=== PATIENT | female | born 1935 | race African-American/Black ===

== ENCOUNTER → 2020-02-12 15:05 | Outpatient (CLI) | payer MEDICARE, BC, SELFPAY ==
--- NOTE | 2020-02-12 15:10 | CT_ITS ---
STUDY: CT RIGHT KNEE WITHOUT CONTRAST REASON FOR EXAM: Female, 84 years old. RT KNEE PAT - Images are for the roboted assisted surgery. RADIATION DOSAGE (If Supplied By Facility): CTDIvol = ( 30.70 ) mGy, DLP = ( 1825.46 ) mGycm TECHNIQUE: Transaxial CT imaging of the knee was performed. Coronal and sagittal images were reformatted. Individualized dose optimization techniques were used for this CT. COMPARISON: None. FINDINGS: Right hip and ankle appear in normal alignment. Cortical margin is intact. No osteolytic or osteoblastic disease. Soft tissues unremarkable. Ankle is in anatomic alignment. Cortical margins are intact. Soft tissues unremarkable. Moderate subchondral sclerosis and narrowing of the medial and lateral tibial femoral joint space. Slight lateral subluxation of the tibia. Mild marginal osteophytosis. Spurring of the superior pole of the patella. Normal proximal tibiofibular articulation. There is no joint effusion. The quadriceps tendon is grossly normal. The patellar tendon is grossly normal. Normal Hoffa''s fat pad. The soft tissues are unremarkable. CT/Extremity Lower without Contra IMPRESSION: Moderately severe osteoarthrosis of the knee Electronically Signed: Harry Lazo MD at 22:36 EDT , Service support ,
== END ==
PROVIDERS: PCP Nurse Practitioner Family; Referring Provider Orthopaedic Surgery; Visit Provider Orthopaedic Surgery
DX: M17.11 Unilateral primary osteoarthritis, right knee (principal); M21.161 Varus deformity, not elsewhere classified, right knee
CPT/HCPCS: 73700

== ENCOUNTER 2020-02-25 11:51 | Observation (INO) | payer MEDICARE, BC, SELFPAY ==
[2013-12-10 11:20] VITALS: BMI 24.8
--- NOTE | 2020-02-21 09:14 | EKG12_ITS ---
Test Reason : PRE-OP Blood Pressure : / mmHG Vent. Rate : 058 BPM Atrial Rate : 058 BPM P-R Int : 170 ms QRS Dur : 132 ms QT Int : 466 ms P-R-T Axes : 065 -14 051 degrees QTc Int : 457 ms Sinus bradycardia Right bundle branch block Abnormal ECG Confirmed by ZIGGY BELTRE, LEONID ([id number]), food editor MARIANO DENNIS ([id number]) on 02/25/2020 11:33:59 AM Referred By: Darrius Solorzano Confirmed By:DURGA TRINH MD
[2020-02-21 09:54] LABS: Absolute Lymphocyte Count 1.63 X10^3/uL (0.83-4.51); Absolute Neutrophil Count 2.4 X10^3/uL (2.0-7.7); Basophil# 0.03 X10^3/uL; Basophil% 0.6 % (0-1); Eosinophil# 0.08 X10^3/uL; Eosinophils% 1.6 % (0-5); Hematocrit 37.9 % (37-47); Hemoglobin 12.2 g/dL (12.0-15.0); Lymphocyte # 1.63 X10^3/ul (4.0); Lymphocyte % 32.4 % (19-41); Mean Corp Hgb Conc 32.2 g/dL (32-36); Mean Corpuscular Hgb 28.1 pg (27.0-32.0); Mean Corpuscular Volume 87.3 fL (81-99); Mean Platelet Vol. 9.8 fl (6.2-12.0); Monocyte# 0.93 X10^3/uL; Monocyte% 18.5 % (0-10); NRBC Flagged by Analyzer 0 % (0-5); Neutrophil # 2.35 X10^3/uL (2.7-7.7); Neutrophil % 46.7 % (47-70); Platelet Count 296 K/mm3 (150-450); RBC Distribution Width CV 14.2 % (11.6-14.6); RBC Distribution Width SD 45.4 fl (35.1-43.9); Red Blood Count 4.34 M/mm3 (4.2-5.4)
[2020-02-21 10:20] LABS: Anion Gap 7 (5-15); BUN 13 mg/dL (7-18); Calcium,Total 9.7 mg/dL (8.5-10.1); Chloride 103 mmol/L (98-107); Creatinine, Serum 0.76 mg/dL (0.55-1.02); EST Glomerular Filtration Rate 77 mL/min (>60); Est Glom Filt Rate - Afr Amer 93 mL/min (>60); Glucose 85 mg/dL (74-106); Potassium 3.5 mmol/L (3.5-5.1); Sodium Level 137 mmol/L (136-145)
[2020-02-25] VITALS (12 sets, daily range): BP systolic 119–149; BP diastolic 59–74; PULSE 54–69; RESP 14–18; TEMP 36.1–36.7; O2SAT 94–100; BMI 26.2; BMI 26.3
[2020-02-25] MEDS: Acetaminophen 500 MG Tablet 1000 MG PO ×2 (10:13→21:26)
[2020-02-25] MEDS: Gabapentin 600 MG Tablet PO (10:13)
[2020-02-25 10:41] LABS: Bedside Glucose 105 mg/dL (70-110)
[2020-02-25] MEDS: Lactated Ringers 1,000 ML 100 ML IV (10:50)
[2020-02-25] MEDS: Cefazolin 2 GM in 0.9% Normal Saline 100 ML IV (11:33)
--- NOTE | 2020-02-25 11:35 | KNEE_PTH ---
PATIENT: KIERAN STRICKLAND LOC: [facility] U#:[id number] AGE/SX: 84/F ROOM: MS314 RE02/25/[address]: Dr. Darrius Solorzano DO : 1935 BED: 1 DIS: 02/26/2020 SPEC #: [id number] RECD: 02/26/20 07:25 STATUS: MARA ROXANNE #: [id number] BRITNI: 02/25/20 11:[address]: Darrius Solorzano DEPT: SURGICAL PATHOLOGY RECD BY: Klaus Saleh ENTERED: 02/26/20 09:37 SP TYPE: TOTAL KNEE OTHR DR: Brandi Edwards NP-Lauren Tissues: Knee, NOS Procedures: Decalcification bone/plaque Surgery Specimen Level IV HEADER OPERATION: ERAS, total knee replacement robotic arm assist PRE-OP DIAGNOSIS: Unilateral primary osteoarthritis right knee TISSUE SUBMITTED: Right knee bone and soft tissue MICROSCOPIC DIAGNOSIS Bone and soft tissue, right knee, total knee replacement: Pieces of bone with degenerative osteoarthritic changes. Fibroadipose tissue, fibroconnective tissue and reactive synovial tissue. SJ:evonne 02/29/20 MICROSCOPIC DESCRIPTION Slides are reviewed. GROSS DESCRIPTION Received is one container designated bone and soft tissue right knee. The specimen consists of multiple fragments of li-yellow bone measuring in aggregate 15 x 8 x 2 cm. Also in the specimen container are multiple fragments of yellow-white soft tissue measuring in aggregate 9 x 7 x 2 cm. A number of bony fragments contain articular surfaces consistent with tibial plateau and femoral condyle and displaying prominent osteophyte formation, eburnation, and bone erosion. Boot Maker sections are submitted in two cassettes as follows: 1 - soft tissue, 2 - bone after decalcification. / AM:evonne 02/26/20 TC:5 [facility]: [id number]
--- NOTE | 2020-02-25 13:36 | PCM.OPRPT ---
Report of Operation Date of Procedure: 02/25/20 Pre-Operative Diagnosis: OA left knee Post-Operative Diagnosis: same Surgery/Procedure Performed:: left TKR finish mender: Sneha Groves Type of Anesthesia:: General Anesthesiologist: Rey Dexter - Admcelsa VTE Documentation VTE Present on Admission: No VTE Mechan Device Prophylaxis: SCD's, Thigh High HANH Hose VTE Pharm Prophylaxis ordered?: Yes
--- NOTE | 2020-02-25 13:38 | OP.PCM_ITS ---
Report of Operation Date of Procedure: 02/25/20 Pre-Operative Diagnosis: OA right knee Post-Operative Diagnosis: same Surgery/Procedure Performed:: right TKR regulatory analyst: Sneha Groves Type of Anesthesia:: Spinal Anesthesiologist: Jose Kirkland - Admit VTE Documentation VTE Present on Admission: No VTE Mechan Device Prophylaxis: SCD's, Thigh High HANH Hose VTE Pharm Prophylaxis ordered?: Yes
[2020-02-25] MEDS: Lactated Ringers 1,000 ML 125 ML IV ×2 (13:55→18:53)
--- NOTE | 2020-02-25 14:40 | RAD_ITS ---
STUDY: X-RAY - RIGHT KNEE REASON FOR EXAM: Postop right knee arthroplasty. TECHNIQUE: 2 view(s) of the knee. COMPARISON: CT images 02/12/2020. FINDINGS: There is a right total knee arthroplasty without evidence of complication. There is postoperative gas in the soft tissues and overlying skin teja. There is vascular calcification. RAD/Knee 1 or 2 Views IMPRESSION: Uncomplicated right total knee arthroplasty. Electronically Signed: Bernard Rider MD at 14:59 EDT Tel , Service support ,
[2020-02-25 14:51] LABS: Hematocrit 31.4 % (37-47); Mean Corp Hgb Conc 31.8 g/dL (32-36); Mean Corpuscular Hgb 28.7 pg (27.0-32.0); Mean Corpuscular Volume 90.2 fL (81-99); Platelet Count 245 K/mm3 (150-450); RBC Distribution Width CV 14.5 % (11.6-14.6); RBC Distribution Width SD 47.3 fl (35.1-43.9); Red Blood Count 3.48 M/mm3 (4.2-5.4); White Blood Count 4.2 K/mm3 (4.4-11.0)
[2020-02-25 15:15] LABS: Anion Gap 10 (5-15); BUN 6 mg/dL (7-18); Calcium,Total 8.2 mg/dL (8.5-10.1); Chloride 108 mmol/L (98-107); Creatinine, Serum 0.46 mg/dL (0.55-1.02); EST Glomerular Filtration Rate 137 mL/min (>60); Est Glom Filt Rate - Afr Amer 166 mL/min (>60); Estimated Creatinine Clearance 32.66 ml/min; Glucose 90 mg/dL (74-106); Potassium 3.6 mmol/L (3.5-5.1); Sodium Level 140 mmol/L (136-145)
[2020-02-25] MEDS: oxyCODONE 5 MG Tablet 2.5 MG PO ×2 (16:37→21:25)
[2020-02-25] MEDS: Furosemide 20 MG Tablet PO (17:27)
[2020-02-25] MEDS: Cefazolin 1 GM/50 ML BAG IV (18:53)
[2020-02-25] MEDS: Senna/Docusate Sodium 1 Tablet 2 TABLET PO (21:26)
[2020-02-25] MEDS: Metoprolol(XL)Succ 100 MG Tablet PO (21:26)
[2020-02-25] MEDS: Aspirin 81 MG TAB.CHEW PO (21:26)
[2020-02-26] MEDS: Cefazolin 1 GM/50 ML BAG IV (03:39)
[2020-02-26 03:40] VITALS: BP 145/68; PULSE 70; RESP 18; TEMP 37.1; O2SAT 94
[2020-02-26] MEDS: Acetaminophen 500 MG Tablet 1000 MG PO ×2 (05:40→14:41)
[2020-02-26 06:05] LABS: Hematocrit 36.8 % (37-47); Hemoglobin 11.7 g/dL (12.0-15.0); Mean Corp Hgb Conc 31.8 g/dL (32-36); Mean Corpuscular Hgb 28.7 pg (27.0-32.0); Mean Corpuscular Volume 90.2 fL (81-99); Mean Platelet Vol. 9.4 fl (6.2-12.0); Platelet Count 278 K/mm3 (150-450); RBC Distribution Width CV 14.4 % (11.6-14.6); RBC Distribution Width SD 47.2 fl (35.1-43.9); Red Blood Count 4.08 M/mm3 (4.2-5.4)
[2020-02-26 06:33] LABS: Anion Gap 7 (5-15); BUN 8 mg/dL (7-18); BUN/Creat Ratio 9.1 RATIO (10-20); Chloride 105 mmol/L (98-107); Creatinine, Serum 0.88 mg/dL (0.55-1.02); EST Glomerular Filtration Rate 66 mL/min (>60); Est Glom Filt Rate - Afr Amer 79 mL/min (>60); Estimated Creatinine Clearance 37.11 ml/min; Glucose 87 mg/dL (74-106); Potassium 3.7 mmol/L (3.5-5.1); Sodium Level 140 mmol/L (136-145)
--- NOTE | 2020-02-26 07:31 | PN.ORTHO_ITS ---
Subjective: The patient was sitting in their upon examination. Patient denies chest pain, shortness of breath, dizziness, lightheadedness, nausea, vomiting or calf pain. Pain is controlled on medications. No adverse events overnight. The patient denies any questions or concerns. She states she is ready to go home. Objective: Vital signs stable. Patient is afebrile. Patient is able to plantar flex and dorsiflex actively. Sensation is intact to light touch to saphenous, sural, superficial and deep peroneal and tibial nerve distributions. Dressing is clean, dry and intact. Negative Homans bilaterally. Negative signs and symptoms of DVT. - Physical Exam Vitals/I&O's: Vital Signs Temp Pulse Resp BP Pulse Ox 98.7 F 70 18 145/68 H 94 02/26/20 03:40 02/26/20 03:40 02/26/20 03:40 02/26/20 03:40 02/26/20 03:40 Oxygen Flow Rate (L/min) 6 Oxygen Delivery Method Room Air Weight: 49.4 kg Body Mass Index (BMI) 26.3 Intake and Output for Last 24 Hours 02/24/20 02/25/20 02/26/20 23:59 23:59 23:59 Intake Total 2357.08 / 2357.08 1043.75 / 1043.75 Output Total 900 / 900 Balance 2357.08 / 2357.08 143.75 / 143.75 General: Alert, Oriented x3, Cooperative HEENT: Atraumatic Extremities: Capillary Refill Less than 3 Seconds, No Calf Tenderness, Edema - Postoperative swelling appreciated., Peripheral Pulses Normal Skin: No rashes, No breakdown Neurological: Cranial nerves II-XII grossly intact Psych/Mental Status: Normal Affect, Appropriate Microbiology Past 72 Hours 02/24/20 09:50 Mucosa - Nasopharyngeal Coronavirus COVID-19 PCR - Final Laboratory Results 02/25/20 10:12: POC Glucose 105 02/25/20 14:45: WBC 4.2 L, RBC 3.48 L, Hgb 10.0 L, Hct 31.4 L, MCV 90.2, MCH 28.7, MCHC 31.8 L, RDW Std Deviation 47.3 H, RDW Coeff of Anat 14.5, Plt Count 245, MPV 10.0 02/25/20 14:45: Sodium 140, Potassium 3.6, Chloride 108 H, Carbon Dioxide 22.0, Anion Gap 10, BUN 6 L, Creatinine 0.46 L, Estim Creat Clear Calc 32.66, Est GFR (MDRD) Af Amer 166, Est GFR (MDRD) Non-Af 137, BUN/Creatinine Ratio 13.0, Glucose 90, Calcium 8.2 L 02/26/20 05:50: WBC 7.0, RBC 4.08 L, Hgb 11.7 L, Hct 36.8 L, MCV 90.2, MCH 28.7, MCHC 31.8 L, RDW Std Deviation 47.2 H, RDW Coeff of Anat 14.4, Plt Count 278, MPV 9.4 02/26/20 05:50: Sodium 140, Potassium 3.7, Chloride 105, Carbon Dioxide 28.0, Anion Gap 7, BUN 8, Creatinine 0.88, Estim Creat Clear Calc 37.11, Est GFR (MDRD) Af Amer 79, Est GFR (MDRD) Non-Af 66, BUN/Creatinine Ratio 9.1 L, Glucose 87, Calcium 9.0 Current Medications Acetaminophen (Tylenol) 1,000 mg PO Q8 [facility] Last Admin: 02/26/20 05:40 Dose: 1,000 mg Documented by: Amlodipine Besylate (Norvasc) 10 mg PO DAILY [facility] Aspirin (Aspirin, Baby) 81 mg PO BIDCM [facility] Last Admin: 02/25/20 21:26 Dose: 81 mg Documented by: Furosemide (Lasix) 20 mg PO BIDLX [facility] Last Admin: 02/25/20 17:27 Dose: 20 mg Documented by: Sodium Chloride () 250 mls @ 15 mls/hr IV .[id number] PRN PRN Reason: Saline Flush Sodium Chloride () 250 mls @ 15 mls/hr IV .[id number] PRN PRN Reason: Additional IVPB Infusion Metoprolol Succinate (Toprol Xl (Beta Homa)) 100 mg PO QHS [facility] Last Admin: 02/25/20 21:26 Dose: 100 mg Documented by: Ondansetron HCl (Zofran) 4 mg IV Q8H PRN PRN PRN Reason: NAUSEA Oxycodone HCl (Oxyir) 2.5 mg PO Q4H PRN PRN PRN Reason: Pain Score 4-10/10 Last Admin: 02/25/20 21:25 Dose: 2.5 mg Documented by: Senna/Docusate Sodium (Senokot-S, Hui-Colace) 2 tablet PO BID [facility] Last Admin: 02/25/20 21:26 Dose: 2 tablet Documented by: Sodium Chloride () 10 - 40 ml IV UD PRN PRN Reason: SALINE FLUSH Medical Necessity - Tobacco Use Smoking Status: Current some day smoker Tobacco Use: Cigarettes Assessment/Plan 1. Status post right total knee arthroplasty post operative day #1. 2. Continue pain medications: Tylenol and OxyIR 3. DVT prophylaxis: Aspirin and thigh-high HANH hose 4. PT/OT: Weightbearing as tolerated 5. H & H: 11.7/36.7, asymptomatic 6. WBCs: 7.0, afebrile 7. Encouraged incentive spirometry. 8. Continue postoperative medical management per medicine. 9: Postoperative drainage: Dressing is clean, dry and intact. No drainage noted on the dressing. Patient may shower over the dressing 24 hours postoperatively. She may remove the dressing 5 days after surgery. 9. Disposition: The plan will be for discharge home today after physical therapy. Prescriptions will be sent to the [facility] retail pharmacy. The patient is scheduled for a postop appointment with Rock Nelson on March 11, 2020 at [facility] at 9:45 AM. She has scheduled for formal physical therapy at [facility] on February 29, 2020 at 11 AM.
--- NOTE | 2020-02-26 07:43 | PCM.DC.TKR ---
Discharge Diet: No Restrictions Discharge Activity: May Not Drive May shower in (days): 1 Ice area for (Minutes): 20 - every hour while awake. Weight Bearing Status: Weight bearing as tolerated Elevate: Operative Extremity Additional Activity Instructions:: Wear elastic stockings for 2 weeks after your surgery. Call your doctor if your incision/area has: Continuous Slow Oozing, Sudden Increased Bleeding, Increased Pain/ Swelling, Increased Redness, Foul Smelling Discharge Call your doctor if you observe: Fever of 101 or Higher, Coldness, Increased Pain, Numbness or Tingling, Change in Color, Calf discomfort, Uncontrolled pain Remove Dressing in (days):: 5 Cleanse incision/area with: Soap & Water Additional Dressing/Incision Instructions:: May shower over dressing as long as it is clean, dry and intact to the skin 24 hours postoperatively. Dressing may be removed 5 days postoperatively. Allergies/Adverse Reactions: Allergies No Known Allergies Allergy (Verified 12/04/13 14:17) Medications to take at Discharge Furosemide [Lasix] 20 mg PO BID 12/04/13 Metoprolol(XL)Succ [Toprol Xl (Beta Homa)] 100 mg PO QHS 12/04/13 Amlodipine [Norvasc] 10 mg PO DAILY 02/20/20 Acetaminophen [Tylenol] 1,000 mg PO Q8 30 Days #100 02/26/20 Aspirin [Aspirin, Baby] 81 mg PO BIDCM 30 Days #60 tab.chew 02/26/20 Oxycodone [Oxyir] 2.5 mg PO Q4H PRN PRN 7 Days #21 tablet 02/26/20 Senna/Docusate Sodium [Senokot-S] 2 tab PO BID #10 tab 02/26/20 The following prescriptions were given: Aspirin [Aspirin, Baby] 81 mg PO BIDCM 30 Days #60 tab.chew Transmission Status: Pending to [facility] Oxycodone [Oxyir] 2.5 mg PO Q4H PRN PRN 7 Days #21 tablet PRN Reason: Pain Score 4-10/10 Transmission Status: Sent to [facility] Senna/Docusate Sodium [Senokot-S] 2 tab PO BID #10 tab Transmission Status: Pending to [facility] Acetaminophen [Tylenol] 1,000 mg PO Q8 30 Days #100 Primary Care Physician: Edwards,Brandi, [facility] [Primary Care Provider] - Test Results: Test results from this visit will be discussed in further detail at your follow-up appointment, if applicable. Please Follow Up With: Blane Nelson PA-C When: March 11, 2020 at 09:45 am Please Follow Up With: JANETH Physical Therapy When: February 29, 2020 at 11:00 am
[2020-02-26 07:53] VITALS: BP 110/47; PULSE 51; RESP 16; TEMP 37.1; O2SAT 93
[2020-02-26] MEDS: Aspirin 81 MG TAB.CHEW PO (07:55)
[2020-02-26 08:00] VITALS: PULSE 51
[2020-02-26] MEDS: oxyCODONE 5 MG Tablet 2.5 MG PO ×2 (08:10→14:40)
[2020-02-26] MEDS: Furosemide 20 MG Tablet PO (10:44)
[2020-02-26] MEDS: Senna/Docusate Sodium 1 Tablet 2 TABLET PO (10:44)
[2020-02-26] MEDS: amLODIPine 10 MG Tablet PO (10:44)
--- NOTE | 2020-02-26 11:00 | CASEMGMT ---
RN JEFFREY Face to Face with patient for initial transition planning/care coordination assessment. RN CM introduced self and role at [facility]. Patient sitting in chair, alert and oriented. Patient willing to participate in assessment and is able to answer all questions appropriately. Care providers, pharmacy, and demographics verified. Patient wishes to discharge home and is setup for outpatient therapy at [facility]. Patient states she has no further needs or concerns at this time. CM to follow for discharge planning needs that may arise. PCP: Jerry Specialists: anna Solorzano Pharmacy: [facility] Insurance: Josef BORJAS Prescription Benefit: yes Living Will/HPOA: none LNOK: daughter Living Arrangements: Patient lives with grandson in first floor apt, no steps to enter. Patient states she was independent at home prior to surgery Transportation: daughter DME/HHC: Patient states that she has walker and grab bars at home. Patient is scheduled for outpatient therapy at [facility] on Tuesday. Disposition Plan: Patient to discharge home with outpatient therapy, family support, and follow-up plans in place. Yesica STOVER, RN, CM
--- NOTE | 2020-02-26 12:37 | CHAPLAIN ---
Type of Pastoral Visit _x__ Initial Visit ___ Follow-up Visit ___ On-call Visit ___ General Patient Visit ___ Spiritual Assessment ___ Family Conference ___ Bereavement ___ Rapid Response ___ Code Blue ___ Other (describe below) Pastoral Care Referral From _x__ Patient ___ Family ___ Nurse ___ Physician ___ Parking Garage Manager ___ Electric Motor Repair Supervisor ___ Other (describe below) Sacrament/Intervention _x__ Active listening ___ Anointing ___ Yazdanism ___ Bereavement ___ Communion _x__ Marycarmen exploration ___ _x__ Life review _x__ Prayer ___ Reconciliation ___ Sacrament of Sick _x__ Supportive presence ___ Wedding ___ Other (describe below) Pastoral Comments patient welcoming of spiritual care and support; pt talkative
[2020-02-26 14:34] VITALS: BP 142/70; PULSE 57; RESP 16; TEMP 37.2; O2SAT 97
== END 2020-02-26 14:45 | disposition home or self-care (01) ==
LOC: SDC 12:01 → MS3 12:01
PROVIDERS: Admitting Provider Orthopaedic Surgery; PCP Nurse Practitioner Family; Referring Provider Orthopaedic Surgery; Visit Provider Orthopaedic Surgery
PROC: 0SRC0JZ Replacement of Right Knee Joint with Synthetic Substitute, Open Approach (ICD-10-PCS; CPT 27447; principal; 2020-02-25 11:05)
DX: M17.0 Bilateral primary osteoarthritis of knee (principal); Z79.899 Other long term (current) drug therapy; I10 Essential (primary) hypertension; F17.210 Nicotine dependence, cigarettes, uncomplicated; M21.161 Varus deformity, not elsewhere classified, right knee; Z11.59 Encounter for screening for other viral diseases
CPT/HCPCS: 01400; 27447; 64447; S2900; 36415; 73560; 80048; 82962; 85025; 85027; 87081; 87635; 88305; 88311; 93005; 96361; 96365; 96366; 97110; 97162; 97166; 97530; 97535; 99218; 99251; C1776; G2023; J7120; G0378; G0379; G0463; U0004

== ENCOUNTER → 2024-10-26 | Outpatient (CLI) | payer MEDICARE, BC, SELFPAY ==
--- NOTE | 2024-10-26 09:26 | RAD_ITS ---
PROCEDURE: CHEST 1 VIEW REASON FOR EXAM: Cough. TECHNIQUE: Frontal and lateral views of the chest. COMPARISON: None. RAD/Chest 1 View IMPRESSION: Lungs are moderately hyperinflated with increased interstitial markings, probab ly with a mild degree of interstitial pulmonary edema present. A small left pleural effusion is noted. No right pleural effusion is clearly evident. No pneumothorax is seen. The cardiomediastinal silhouette is remarkable for a calcified aorta. No evide nce of cardiomegaly. [id number] degenerative changes of the visualized spine are seen. Right upper quadrant abdominal surgical clips are noted. Reading Location: [id number]
== END | disposition home or self-care (01) ==
LOC: RAD 09:21
PROVIDERS: PCP Nurse Practitioner Family; Referring Provider Otolaryngology; Visit Provider Otolaryngology
DX: R05.9 Cough, unspecified (principal)
CPT/HCPCS: 71045

== ENCOUNTER → 2025-03-05 | Outpatient (CLI) | payer MEDICARE, BC, SELFPAY | END | disposition home or self-care (01) | LOC: PSN 09:58 | PROVIDERS: PCP Nurse Practitioner Family; Referring Provider Nurse Practitioner Family; Visit Provider Nurse Practitioner Family | DX: R05.9 Cough, unspecified (principal) | CPT/HCPCS: 94060; 94726; 94729 ==

== ENCOUNTER → 2025-03-07 | Outpatient (CLI) | payer MEDICARE, BC, SELFPAY ==
[2025-03-07 12:45] VITALS: PULSE 61; PULSE 64; PULSE 65; PULSE 68; PULSE 69; PULSE 70; O2SAT 93; O2SAT 94; O2SAT 95
--- NOTE | 2025-03-07 13:15 | CT_ITS ---
PROCEDURE: CHEST WITHOUT CONTRAST 03/07/2025 REASON FOR EXAM: COUGH FOR GREATER THAN 6 MONTHS, CURRENT SMOKER Shortness of breath. TECHNIQUE: Chest CT without contrast. Coronal and Sagittal reconstruction series were provided. One or more dose reduction techniques were used (e.g., Automated exposure control, adjustment of the mA and/or kV according to patient size, use of iterative reconstruction technique RADIATION DOSE SUMMARY: CTDlvol: 6.1 mGy DLP: 199.84 mGycm COMPARISON: Prior chest radiograph dated October 26, 2024 FINDINGS: Hardware: None Lymph nodes: Small benign-appearing mediastinal lymph nodes. Heart and Vasculature: Cardiomegaly. No pericardial effusion. Atherosclerotic calcifications of the thoracic aorta. Thoracic aorta and pulmonary arteries have normal contours; noncontrast technique limits evaluation. Coronary Artery Calcifications: Present Lungs and Airways: Mild scarring in the medial portion of the right upper lobe as well as in the posterior aspect of the lingula segment of the left upper lobe. Pleura: No pleural effusion. Upper Abdomen: Unremarkable Bones: Degenerative changes of the thoracic spine. CT/Chest without Contrast IMPRESSION: Coronary artery calcification (CAC) is is present Mild scarring in the right upper lobe and lingular segment of the left upper lo be. Reading Location: [facility]
[2025-03-07 15:10] LABS: Absolute Lymphocyte Count 1.87 X10^3/uL (0.83-4.51); Absolute Neutrophil Count 2.8 X10^3/uL (2.0-7.7); Basophil# 0.04 X10^3/uL; Basophil% 0.7 % (0-1); Eosinophil# 0.08 X10^3/uL; Eosinophils% 1.4 % (0-5); Hematocrit 43.7 % (37-47); Hemoglobin 14.4 g/dL (12.0-15.0); Lymphocyte # 1.87 X10^3/ul (0.83-4.51); Lymphocyte % 32.5 % (19-41); Mean Corpuscular Hgb 28.8 pg (27.0-32.0); Mean Corpuscular Volume 87.4 fL (81-99); Monocyte# 0.96 X10^3/uL; Monocyte% 16.7 % (0-10); NRBC Flagged by Analyzer 0 % (0-5); Neutrophil # 2.79 X10^3/uL (2.7-7.7); Neutrophil % 48.5 % (47-70); Platelet Count 307 K/mm3 (150-450); RBC Distribution Width CV 14.4 % (11.6-14.6); RBC Distribution Width SD 45.9 fl (35.1-43.9); White Blood Count 5.8 K/mm3 (4.4-11.0)
[2025-03-07 15:49] LABS: Pro- Brain NATRIURETIC PEPTIDE 350 pg/mL (<=1800)
--- NOTE | 2025-03-11 10:18 | PCM.PSN.6M ---
PSN 6 Minute Walk Test 6 Minute Walk Test 6 Minute Walk Test: 6 Minute Walk Test PSN:6-Minute Walk Test Start: 03/07/25 12:44 Freq: Status: Active Protocol: [id number] Document 03/07/25 12:45 [facility] (Rec: 03/07/25 12:55 [facility] [id number]) 6 Minute Walk Test Date Performed 03/07/25 Time Performed 12:30 Height 4 ft 8 in Weight: 108 lb Weight in Pounds 108.[address]: Mary Jane Osuna Assistive device None used: Pre-test Oxygen Delivery Room Air Method Pulse Ox (%) 95 Pulse Rate (60-100 61 beats/min) Dyspnea Speedy Scale ( 0 0-10) Exertion Speedy Scale 6 (6-20) 1st minute Oxygen Delivery Room Air Method Pulse Ox (%) 94 Pulse Rate (60-100 65 beats/min) Dyspnea Sepedy Scale ( 0 0-10) Number of Rests 0 Taken 2nd minute Oxygen Delivery Room Air Method Pulse Ox (%) 93 Pulse Rate (60-100 68 beats/min) Dyspnea Speedy Scale ( 0 0-10) Number of Rests 0 Taken 3rd minute Oxygen Delivery Room Air Method Pulse Ox (%) 94 Pulse Rate (60-100 69 beats/min) Dyspnea Speedy Scale ( 1 0-10) Number of Rests 0 Taken 4th minute Oxygen Delivery Room Air Method Pulse Ox (%) 95 Pulse Rate (60-100 68 beats/min) Dyspnea Speedy Scale ( 1 0-10) Number of Rests 0 Taken 5th minute Oxygen Delivery Room Air Method Pulse Ox (%) 94 Pulse Rate (60-100 70 beats/min) Dyspnea Speedy Scale ( 1 0-10) Number of Rests 0 Taken 6th minute Oxygen Delivery Room Air Method Pulse Ox (%) 93 Pulse Rate (60-100 68 beats/min) Dyspnea Speedy Scale ( 2 0-10) Exertion Speedy Scale 6 (6-20) Number of Rests 0 Taken Post-test Oxygen Delivery Room Air Method Pulse Ox (%) 95 Pulse Rate (60-100 64 beats/min) Dyspnea Speedy Scale ( 0 0-10) Exertion Speedy Scale 6 (6-20) Full Laps Walked 12 Partial Lap, Number 0 of Tiles Walked Total Distance 708 Walked (ft) Interpretation Interpretation: The patient ambulated 780 feet over the course of 6 minutes beginning on room air without assistive devices. Pretesting oxygen saturation was noted to be 95% on room air. With ambulation, the stefany oxygen saturation was 93%. There was no significant exertional oxygen desaturation. Recommendations Recommendations: There is no indication for the use of supplemental oxygen at this time.
== END | disposition home or self-care (01) ==
PROVIDERS: PCP Registered Nurse; Referring Provider Nurse Practitioner Family; Visit Provider Nurse Practitioner Family
DX: R06.02 Shortness of breath (principal); R05.9 Cough, unspecified
CPT/HCPCS: 36415; 71250; 83880; 85025; 86606; 94618